=== PATIENT | male | born 1950 | race Caucasian/White ===

== ENCOUNTER 2022-02-16 14:31 | Outpatient (CLI) | payer MEDICARE, SELFPAY ==
--- NOTE | ~2022-02-16 | CT_ITS ---
EXAMINATION: CT LE RT w con DATE: 02/16/2022 15:11 INDICATION: Right leg pain with mass at the right knee TECHNIQUE: High resolution computed tomography (CT) of the right lower limb from the hip through the hindfoot was performed with 100 mL Omnipaque-350 intravenous contrast. Additional sagittal and ramirez l reconstructions were performed. Automated exposure control and iterative reconstruction technique w ere employed. The dose-length product was 1128.27 mGy-cm. COMPARISON: None FINDINGS: Bone alignment is normal. No fracture, erosions, periosteal reaction or lytic/blastic bone lesions. J oint spaces appear normal. Small right knee joint effusion. Small Brock's cyst. There is an additiona l lentiform fluid collection along the medial margin of the dorsal medial head of the gastrocnemius m uscle which remains deep to the superficial fascia measuring 6.1 cm craniocaudally and up to 2.1 x 1. 1 cm in maximal transaxial dimensions. There is a small intramuscular lipoma at the lateral aspect of the medial head of the gastrocnemius muscle which measures 3.2 cm proximal to distal and up to 1.4 x 0.8 cm maximal transaxial dimensions. Extensive scattered atherosclerotic calcifications along the a rteries of the right lower limb beginning at the right external iliac artery and extending through th e anterior tibial, posterior tibial and peroneal arteries at the ankle. The density of contrast is in sufficient to assess for degree of stenosis. No abnormal masses identified. There is however focal di lation of the popliteal vein cephalad to the level of the knee. For reference the diameter increases from 10 x 12 mm measured 10 cm cephalad to the level of the knee joint line versus 2.8 x 1.9 cm measu red 13 cm cephalad to the level of the knee joint line. There is no venous contrast to allow for asse ssment of venous thrombosis. There is prominent subcutaneous edema in the right calf. Small fat-conta ining right inguinal hernia. IMPRESSION: 1. 6.1 x 2.1 x 1.1 cm lenticular fluid collection along the medial aspect of the proximal medial head of the gastrocnemius muscle which could represent caudal extension of a component of the small Brock 's cyst, a small hematoma in the setting of prior trauma/muscle strain and could not exclude abscess in the appropriate clinical setting although there is no significant surrounding inflammatory strandi ng to elevate suspicion. 2. 3.2 x 1.4 x 0.8 cm intramuscular lipoma at the lateral side of the proximal medial head of the gas trocnemius muscle. Given the small size and location within the muscle at is doubtful whether this wo uld be discernible by palpation. No other abnormal masses identified. 3. Focal dilation of the popliteal vein at the cephalad aspect of the popliteal fossa and edema more distally at the right calf which raises the possibility of deep venous thrombosis. There is however n o intravenous contrast for more definitive determination. Per discussion with Dr. Fall there has be en a recently extremity Doppler, images of which are unavailable for comparison but which reportedly demonstrated no deep venous thrombosis. Reviewed, dictated and finalized at location A. IMPRESSION: 1. 6.1 x 2.1 x 1.1 cm lenticular fluid collection along the medial aspect of th e proximal medial head of the gastrocnemius muscle which could represent caudal extension of a component of the small Brock's cyst, a small hematoma in the se tting of prior trauma/muscle strain and could not exclude abscess in the approp riate clinical setting although there is no significant surrounding inflammator y stranding to elevate suspicion. 2. 3.2 x 1.4 x 0.8 cm intramuscular lipoma at the lateral side of the proximal medial head of the gastrocnemius muscle. Given the small size and locatio
[2022-02-16 15:01] LABS: Estimated Glomerular Filt Rate 60
== END 2022-02-16 14:32 | disposition home or self-care (01) ==
PROVIDERS: PCP Family Medicine; Visit Provider Family Medicine
DX: R22.41 Localized swelling, mass and lump, right lower limb (principal); M79.604 Pain in right leg; D17.23 Benign lipomatous neoplasm of skin and subcutaneous tissue of right leg
CPT/HCPCS: 73701; Q9967